=== PATIENT | female | born 1995 | race Caucasian/White ===

== ENCOUNTER 2022-01-26 08:43 | Emergency (ER) | payer OTHER ==
[2022-01-26 09:01] VITALS: BP 116/88; PULSE 80; RESP 20; TEMP 98.2; BMI 22.8
[2022-01-26] MEDS ORDERED: DEXAMETHASONE SOD PHOSPHATE 10 MG/1 ML VIAL IM ONE (09:12)
[2022-01-26] MEDS ORDERED: DEXAMETHASONE SOD PHOSPHATE 10 MG/1 ML VIAL ONE (09:16)
[2022-01-26 11:51] LABS: THROAT:GRP A STREP NOT DETECTED (NOTDETECTED)
== END 2022-01-26 09:54 | disposition home or self-care (01) ==
LOC: FER 08:43
PROC: 3E033NZ Introduction of Analgesics, Hypnotics, Sedatives into Peripheral Vein, Percutaneous Approach (ICD-10-PCS; principal; 2022-01-26)
DX: R07.0 Pain in throat (principal)
CPT/HCPCS: 0241U-QW; 87651; 99283-25; J1100